=== PATIENT | male | born 1980 | race Caucasian/White ===

== ENCOUNTER 2019-11-22 04:29 | Inpatient (IN) | payer MEDICAID ==
[~2019-11-22] VITALS: Ht 165.1 cm; Wt 90.7 kg
[2019-11-22 05:12] LABS: HEMATOCRIT. 42.1 % (42.0-52.0); MEAN CORPUSCULAR VOLUME 85.9 fL (80.0-94.0); MEAN PLATELET VOLUME 7.5 fl (7.4-10.4); PLATELET 316 x1000/uL (130-400); RED CELL DISTRIBUTION WIDTH 14.7 % (11.6-14.6)
[2019-11-22 05:18] LABS: CHLORIDE 93 mEq/L (98-107)
[2019-11-22 06:17] LABS: ETHANOL BLOOD 213 mg/dL
[2019-11-22] MEDS ORDERED: ONDANSETRON HCL 4MG/2ML INJ IV STA (06:21)
[2019-11-22] MEDS ORDERED: MORPHINE SULFATE 4 MG/ML CPJ (NOT FOR IM USE) IV STA (06:21)
[2019-11-22] MEDS ORDERED: SODIUM CHLORIDE 0.9% 1,000 ML IV ONE (06:21)
[2019-11-22 06:27] LABS: HEMOGLOBIN. 14.1 g/dL (14.0-18.0); MEAN CORPUSCULAR HEMOGLOBIN 28.8 pg (28.0-32.0)
[2019-11-22 06:48] LABS: PLATELET ESTIMATE NORMAL
[2019-11-22 07:03] LABS: CLARITY URINE CLEAR (CLEAR); COLOR URINE DARK YELLOW (YELLOW); KETONES URINE TRACE (NEGATIVE); LEUKOCYTE ESTERASE URINE NEGATIVE (NEGATIVE); NITRITE URINE NEGATIVE (NEGATIVE); OCCULT BLOOD URINE NEGATIVE (NEGATIVE); PROTEIN URINE 2+ (NEGATIVE); SPECIFIC GRAVITY URINE 1.036 (1.005-1.030)
[2019-11-22 07:14] LABS: *AMPHETAMINES SCREEN URINE PRESUMTIVE POSITIVE (NEGATIVE); *BARBITURATES SCREEN URINE NEGATIVE (NEGATIVE)
[2019-11-22 07:15] LABS: *BENZODIAZEPINES SCREEN URINE NEGATIVE (NEGATIVE); *COCAINE SCREEN URINE NEGATIVE (NEGATIVE); CANNABINOID URINE SCREEN NEGATIVE (NEGATIVE); METHADONE URINE SCREEN NEGATIVE (NEGATIVE); OPIATES URINE SCREEN NEGATIVE (NEGATIVE); PHENCYCLIDINE URINE SCREEN NEGATIVE (NEGATIVE)
[2019-11-22] MEDS ORDERED: FOLIC ACID 1 MG, THIAMINE HCL 100 MG, MVI, ADULT NO.1 10 ML in DEXTROSE 5% WATER 1,000 ML IV ONE ×4 (12:00)
[2019-11-22] MEDS ORDERED: ONDANSETRON HCL 4MG/2ML INJ IV PRN (12:00)
[2019-11-22] MEDS: MORPHINE SULFATE 2 MG/ML CPJ (NOT FOR IM USE) IV PRN ×3 (12:12→21:17)
[2019-11-22 12:50] VITALS: BP 136/88
[2019-11-22] MEDS: CHLORDIAZEPOXIDE 25MG CAPSULE PO SCH ×2 (14:54→21:19)
[2019-11-22 15:03] VITALS: BP 136/88
[2019-11-22 16:00] VITALS: BP 133/78
[2019-11-22 20:00] VITALS: BP 144/91
[2019-11-22 21:06] LABS: HEPATITIS B SURFACE ANTIGEN NEGATIVE
[2019-11-22] MEDS: ACETAMINOPHEN 325MG TABLET PO PRN (21:18)
[2019-11-22] MEDS: METOPROLOL TARTRATE 50MG TABLET PO SCH (21:19)
[2019-11-22 21:36] LABS: HEPATITIS A AB IGM NEGATIVE (NEGATIVE)
[2019-11-23] VITALS: BP 122/85
[2019-11-23 04:00] VITALS: BP 114/79
[2019-11-23] MEDS: DEXT 5%/0.45% NACL 1000ML 1,000 ML IV SCH ×3 (04:57→20:23)
[2019-11-23] MEDS: MORPHINE SULFATE 2 MG/ML CPJ (NOT FOR IM USE) IV PRN ×2 (04:58→09:58)
[2019-11-23] MEDS: CHLORDIAZEPOXIDE 25MG CAPSULE PO SCH ×3 (05:33→22:12)
[2019-11-23 08:00] VITALS: BP 119/81
[2019-11-23] MEDS ORDERED: FOLIC ACID 1 MG, THIAMINE HCL 100 MG, MVI, ADULT NO.1 10 ML in DEXTROSE 5% WATER 1,000 ML IV SCH ×4 (09:00)
[2019-11-23 09:16] LABS: CHLORIDE 101 mEq/L (98-107)
[2019-11-23 09:18] LABS: HEMATOCRIT. 46.4 % (42.0-52.0); MEAN CORPUSCULAR HEMOGLOBIN 28.8 pg (28.0-32.0); MEAN CORPUSCULAR VOLUME 87.7 fL (80.0-94.0); MEAN PLATELET VOLUME 8.6 fl (7.4-10.4); PLATELET 278 x1000/uL (130-400); RED BLOOD CELL COUNT 5.28 mill/uL (4.7-6.1)
[2019-11-23 09:23] LABS: HEMOGLOBIN. 15.2 g/dL (14.0-18.0)
[2019-11-23 09:39] LABS: PLATELET ESTIMATE NORMAL
[2019-11-23] MEDS: METOPROLOL TARTRATE 50MG TABLET PO SCH ×2 (09:58→22:14)
[2019-11-23 12:00] VITALS: BP 125/79
[2019-11-23] MEDS: PIPERACILLIN/TAZOBACTAM 3.375 G in DEXT 5% WATER 100 ML IV SCH ×3 (13:41→20:22)
[2019-11-23 16:00] VITALS: BP 104/45
[2019-11-23 20:00] VITALS: BP 120/82
[2019-11-23] MEDS: ACETAMINOPHEN 325MG TABLET PO PRN (22:35)
[2019-11-24] VITALS: BP 122/79
[2019-11-24] MEDS: PIPERACILLIN/TAZOBACTAM 3.375 G in DEXT 5% WATER 100 ML IV SCH ×4 (00:58→18:08)
[2019-11-24 03:24] LABS: HEMATOCRIT. 43.8 % (42.0-52.0); HEMOGLOBIN. 15.3 g/dL (14.0-18.0); MEAN CORPUSCULAR HEMOGLOBIN 30.1 pg (28.0-32.0); MEAN CORPUSCULAR VOLUME 86.2 fL (80.0-94.0); MEAN PLATELET VOLUME 8.2 fl (7.4-10.4); PLATELET 265 x1000/uL (130-400); RED BLOOD CELL COUNT 5.08 mill/uL (4.7-6.1); RED CELL DISTRIBUTION WIDTH 14.5 % (11.6-14.6)
[2019-11-24 03:27] LABS: CHLORIDE 94 mEq/L (98-107)
[2019-11-24 04:00] VITALS: BP 114/79
[2019-11-24] MEDS: DEXT 5%/0.45% NACL 1000ML 1,000 ML IV SCH (05:11)
[2019-11-24] MEDS: CHLORDIAZEPOXIDE 25MG CAPSULE PO SCH ×3 (05:12→21:26)
[2019-11-24 08:00] VITALS: BP 113/76
[2019-11-24 08:41] LABS: PLATELET ESTIMATE NORMAL
[2019-11-24] MEDS: THIAMINE HCL 100MG TABLET PO SCH (09:21)
[2019-11-24] MEDS: MULTIVITAMINS,THER W-MINERALS TABLET PO SCH (09:21)
[2019-11-24] MEDS: METOPROLOL TARTRATE 50MG TABLET PO SCH ×2 (09:22→20:39)
[2019-11-24] MEDS: FOLIC ACID 1MG TABLET PO SCH (09:22)
[2019-11-24] MEDS: SODIUM CHLORIDE 0.9% 1,000 ML IV SCH ×2 (09:23→18:09)
[2019-11-24 12:00] VITALS: BP 114/63
[2019-11-24] MEDS: ACETAMINOPHEN 325MG TABLET PO PRN ×2 (12:24→20:38)
[2019-11-24 16:00] VITALS: BP 114/67
[2019-11-24 20:00] VITALS: BP 105/78
[2019-11-24] MEDS: MORPHINE SULFATE 2 MG/ML CPJ (NOT FOR IM USE) IV PRN (20:41)
[2019-11-25] VITALS: BP 130/85
[2019-11-25] MEDS: PIPERACILLIN/TAZOBACTAM 3.375 G in DEXT 5% WATER 100 ML IV SCH ×5 (00:53→23:02)
[2019-11-25] MEDS: MORPHINE SULFATE 2 MG/ML CPJ (NOT FOR IM USE) IV PRN ×3 (00:54→22:49)
[2019-11-25] MEDS: ACETAMINOPHEN 325MG TABLET PO PRN ×4 (03:12→20:24)
[2019-11-25] MEDS: SODIUM CHLORIDE 0.9% 1,000 ML IV SCH ×2 (03:16→13:58)
[2019-11-25 04:00] VITALS: BP 113/70
[2019-11-25 06:06] LABS: BASOPHILS % 0.5 % (0.0-2.0); EOSINOPHILS % 0.6 % (0.0-5.0); HEMATOCRIT. 33.3 % (42.0-52.0); HEMOGLOBIN. 11.6 g/dL (14.0-18.0); LYMPHOCYTES % 11.7 % (20.0-50.0); MEAN CORPUSCULAR HEMOGLOBIN 29.6 pg (28.0-32.0); MEAN PLATELET VOLUME 8.3 fl (7.4-10.4); NEUTROPHILS % 80.2 % (40.0-76.0); PLATELET 229 x1000/uL (130-400); RED BLOOD CELL COUNT 3.92 mill/uL (4.7-6.1); RED CELL DISTRIBUTION WIDTH 14.1 % (11.6-14.6)
[2019-11-25] MEDS: CHLORDIAZEPOXIDE 25MG CAPSULE PO SCH ×3 (06:06→21:00)
[2019-11-25 07:12] LABS: CHLORIDE 98 mEq/L (98-107)
[2019-11-25 08:00] VITALS: BP 109/86
[2019-11-25] MEDS: METOPROLOL TARTRATE 50MG TABLET PO SCH ×2 (09:00→20:24)
[2019-11-25] MEDS: FOLIC ACID 1MG TABLET PO SCH (09:30)
[2019-11-25] MEDS: THIAMINE HCL 100MG TABLET PO SCH (09:30)
[2019-11-25] MEDS: MULTIVITAMINS,THER W-MINERALS TABLET PO SCH (09:30)
[2019-11-25 12:00] VITALS: BP 124/67
[2019-11-25 16:00] VITALS: BP 125/73
[2019-11-25 20:00] VITALS: BP 141/82
[2019-11-25] MEDS ORDERED: ZOLPIDEM TARTRATE 5MG TABLET PO PRN (21:00)
[2019-11-25] MEDS: DIPHENHYDRAMINE 50MG CAPSULE PO PRN (21:00)
[2019-11-26] VITALS (7 sets, daily range): BP systolic 105–166; BP diastolic 62–78
[2019-11-26] MEDS: SODIUM CHLORIDE 0.9% 1,000 ML IV SCH ×2 (04:28→09:31)
[2019-11-26] MEDS: PIPERACILLIN/TAZOBACTAM 3.375 G in DEXT 5% WATER 100 ML IV SCH ×3 (05:01→17:31)
[2019-11-26] MEDS: DIPHENHYDRAMINE 50MG CAPSULE PO PRN (05:02)
[2019-11-26] MEDS: ACETAMINOPHEN 325MG TABLET PO PRN ×2 (05:02→09:38)
[2019-11-26] MEDS: CHLORDIAZEPOXIDE 25MG CAPSULE PO SCH ×3 (05:02→21:16)
[2019-11-26] MEDS: THIAMINE HCL 100MG TABLET PO SCH (09:31)
[2019-11-26] MEDS: METOPROLOL TARTRATE 50MG TABLET PO SCH (09:31)
[2019-11-26] MEDS: FOLIC ACID 1MG TABLET PO SCH (09:31)
[2019-11-26] MEDS: MULTIVITAMINS,THER W-MINERALS TABLET PO SCH (09:31)
[2019-11-26] MEDS ORDERED: POTASSIUM CHLORIDE 20MEQ TABLET SR PO NR (11:00)
[2019-11-26] MEDS ORDERED: LORAZEPAM 2MG/ML CPJ IV PRN (13:15)
[2019-11-26] MEDS: OMEPRAZOLE 20MG CAPSULE EXTENDED RELEASE PO SCH (14:26)
[2019-11-26 16:26] LABS: CHLORIDE 101 mEq/L (98-107)
[2019-11-26 16:31] LABS: BASOPHILS % 0.5 % (0.0-2.0); EOSINOPHILS % 0.8 % (0.0-5.0); HEMOGLOBIN. 10.4 g/dL (14.0-18.0); LYMPHOCYTES % 10.2 % (20.0-50.0); MEAN CORPUSCULAR VOLUME 86.2 fL (80.0-94.0); MEAN PLATELET VOLUME 7.9 fl (7.4-10.4); MONOCYTES % 13.6 % (2.0-8.0); NEUTROPHILS % 74.9 % (40.0-76.0); PHOSPHORUS 2.1 mg/dL (2.5-4.9); PLATELET 221 x1000/uL (130-400); RED BLOOD CELL COUNT 3.48 mill/uL (4.7-6.1); RED CELL DISTRIBUTION WIDTH 14.4 % (11.6-14.6)
[2019-11-26] MEDS: MORPHINE SULFATE 2 MG/ML CPJ (NOT FOR IM USE) IV PRN (21:15)
[2019-11-26] MEDS: METOPROLOL TARTRATE 25MG TABLET PO SCH (21:16)
[2019-11-27] VITALS: BP 122/72
[2019-11-27] MEDS: PIPERACILLIN/TAZOBACTAM 3.375 G in DEXT 5% WATER 100 ML IV SCH ×3 (00:32→11:14)
[2019-11-27] MEDS: SODIUM CHLORIDE 0.9% 1,000 ML IV SCH ×2 (00:32→15:06)
[2019-11-27 04:00] VITALS: BP 116/72
[2019-11-27] MEDS: MORPHINE SULFATE 2 MG/ML CPJ (NOT FOR IM USE) IV PRN ×2 (04:23→10:01)
[2019-11-27] MEDS: ACETAMINOPHEN 325MG TABLET PO PRN ×2 (05:24→15:26)
[2019-11-27] MEDS: CHLORDIAZEPOXIDE 25MG CAPSULE PO SCH ×2 (05:24→13:20)
[2019-11-27] MEDS: OMEPRAZOLE 20MG CAPSULE EXTENDED RELEASE PO SCH (05:24)
[2019-11-27 08:00] VITALS: BP 130/74
[2019-11-27] MEDS: FOLIC ACID 1MG TABLET PO SCH (08:49)
[2019-11-27] MEDS: THIAMINE HCL 100MG TABLET PO SCH (08:49)
[2019-11-27] MEDS: MULTIVITAMINS,THER W-MINERALS TABLET PO SCH (08:49)
[2019-11-27] MEDS: METOPROLOL TARTRATE 25MG TABLET PO SCH (08:49)
[2019-11-27 12:04] VITALS: BP 118/68
[2019-11-27] MEDS ORDERED: FOLI-43 MT (13:49)
[2019-11-27] MEDS ORDERED: L25 MT (13:49)
[2019-11-27] MEDS ORDERED: THIA100T72 PO (13:49)
[2019-11-27] MEDS ORDERED: POTASSIUM-SODIUM PHOSPHATE POWDER PACKET PO SCH (14:00)
[2019-11-27 15:56] VITALS: BP 119/80
[2019-11-27 16:01] VITALS: BP 119/80
== END 2019-11-27 18:18 | disposition home or self-care (01) | DRG 282 ==
LOC: ER 04:29 → 8WST 11:03 → EDBEDREQSVC 11:24 → EDBEDREQTM 11:24 → EDBEDREQ 11:24 → ENRESERV 11:45
PROVIDERS: ADMIT Internal Medicine; ATTEND Internal Medicine
DX: K85.90 Acute pancreatitis without necrosis or infection, unspecified (principal); E43 Unspecified severe protein-calorie malnutrition; E87.8 Other disorders of electrolyte and fluid balance, not elsewhere classified; F10.129 Alcohol abuse with intoxication, unspecified; R74.0 Nonspecific elevation of levels of transaminase and lactic acid dehydrogenase [LDH]; Y90.7 Blood alcohol level of 200-239 mg/100 ml; F12.90 Cannabis use, unspecified, uncomplicated; F15.90 Other stimulant use, unspecified, uncomplicated; F17.200 Nicotine dependence, unspecified, uncomplicated; Z71.41 Alcohol abuse counseling and surveillance of alcoholic; Z71.51 Drug abuse counseling and surveillance of drug abuser; Z68.33 Body mass index [BMI] 33.0-33.9, adult
CPT/HCPCS: 36415; 71045; 76700; 80048; 80053; 80305; 80320; 81003; 83735; 84100; 85025; 86705; 86709; 86803; 87340; 93005; 99285; J2060; J2270; J2405; J2543; J3411; J3490; J7030; J7060; J7070; Q0163; G0480

== ENCOUNTER 2024-09-15 23:09 | Emergency (ER) | payer MEDICAID ==
[~2024-09-15] VITALS: Ht 165.1 cm; Wt 80.0 kg
[~2024-09-15 23:09] MED LIST: FOLI-43 MT; THIA100T72 PO
[2024-09-16 00:22] VITALS: O2SAT 99
[2024-09-16] MEDS ORDERED: LIDO-53 TP (01:16)
[2024-09-16 01:57] VITALS: BP 146/91; PULSE 78; RESP 16; TEMP 36.9; O2SAT 100
== END 2024-09-16 02:11 | disposition home or self-care (01) ==
LOC: ER 23:09
DX: M67.431 Ganglion, right wrist (principal); F12.90 Cannabis use, unspecified, uncomplicated; F14.90 Cocaine use, unspecified, uncomplicated
CPT/HCPCS: 73110; 99283